=== PATIENT | female | born 2000 | race Hispanic/Latino ===

== ENCOUNTER 2021-06-16 01:36 | Emergency (ER) | payer BC, OTHER ==
[~2021-06-16] VITALS: Ht 157.5 cm; Wt 68.0 kg
== END 2021-06-16 02:45 | disposition home or self-care (01) ==
LOC: FSED 02:10
DX: S01.01XA Laceration without foreign body of scalp, initial encounter (principal); Y00.XXXA Assault by blunt object, initial encounter; Y93.89 Activity, other specified; Y92.89 Other specified places as the place of occurrence of the external cause
CPT/HCPCS: 99282